=== PATIENT | female | born 1960 | race Two or more races ===

== ENCOUNTER 2017-04-06 02:48 | Inpatient (IN) | payer MEDICAID ==
[~2017-04-06] VITALS: Ht 165.1 cm; Wt 142.2 kg
[~2017-04-06 02:48] MED LIST: AMLO10TA2 PO; APIX5TAB PO; ASPI500P3 PO; ATOR10TA9 PO; HYDR-3240 PO; HYDR1POW19 PO; LINE600I14 PO; LISI1POW PO; METF500T4 PO; METO1TAB18 PO; METO25TA35 PO
[2017-04-06] MEDS ORDERED: SODIUM CHLORIDE 0.9% 1,000 ML IV ONE (02:57)
[2017-04-06] MEDS ORDERED: ASPIRIN 81 MG TABLET CHEW PO ONE (03:00)
[2017-04-06] MEDS ORDERED: DILTIAZEM 5 MG/ML, 5ML IV ONE (03:00)
[2017-04-06] MEDS ORDERED: SODIUM CHLORIDE FLUSH 10ML SYR IVF ONE (03:00)
[2017-04-06] MEDS ORDERED: MORPHINE SULFATE 4 MG/ML, 1ML IVPush PRN (03:00)
[2017-04-06] MEDS ORDERED: ASPIRIN 81 MG TABLET CHEW ONE (03:24)
[2017-04-06] MEDS ORDERED: DILTIAZEM 5 MG/ML, 5ML ONE (03:24)
[2017-04-06 03:36] LABS: HEMATOCRIT 51.3 % (34.6-47.8); HEMOGLOBIN 17.1 g/dL (11.7-16.4); WHITE BLOOD COUNT 7.3 x10^3/uL (3.4-10)
[2017-04-06 03:41] LABS: BLOOD UREA NITROGEN 24 mg/dL (7-18)
[2017-04-06 03:57] LABS: ASPARTATE AMINO TRANSFERASE 29 U/L (15-37); IS PT STATUS REG ER OR PRE ER? YES
[2017-04-06] MEDS ORDERED: NITROGLYCERIN 0.4 MG/SPRAY SL PRN (04:00)
[2017-04-06] MEDS ORDERED: NITROGLYCERIN 0.4 MG BOTTLE (25 TABS) SL PRN (04:00)
[2017-04-06] MEDS ORDERED: METF-650 PO (04:19)
[2017-04-06] MEDS ORDERED: LISI40TA PO (04:19)
[2017-04-06] MEDS ORDERED: hydrALAzine 20 MG/ML, 1ML IVPush PRN (04:30)
[2017-04-06] MEDS ORDERED: LORazepam 2 MG/ML, 1ML IVPush PRN (04:30)
[2017-04-06] MEDS ORDERED: ONDANSETRON 2MG/ML, 2ML IVPush PRN (04:30)
[2017-04-06] MEDS ORDERED: ACETAMINOPHEN 325 MG TABLET PO PRN (04:30)
[2017-04-06 04:44] LABS: IS PT STATUS REG ER OR PRE ER? YES
[2017-04-06 05:23] VITALS: BP 112/74
[2017-04-06] MEDS ORDERED: DILTIAZEM 125 MG in SODIUM CHLORIDE 0.9% 100 ML IV SCH (05:30)
[2017-04-06] MEDS ORDERED: METOPROLOL TARTRATE 25 MG TABLET PO SCH ×2 (06:00→18:00)
[2017-04-06] MEDS ORDERED: ENOXAPARIN 120MG/0.8ML SQ SCH (06:00)
[2017-04-06] MEDS: INSULIN ASPART 100 UNITS/ML, PEN SQ-INSULIN SCH ×4 (07:00→20:24)
[2017-04-06 07:51] LABS: IS PT STATUS REG ER OR PRE ER? NO
[2017-04-06 08:07] VITALS: BP 122/83
[2017-04-06] MEDS: ACETAMINOPHEN 325 MG TABLET PO PRN (08:37)
[2017-04-06] MEDS: ASPIRIN 325 MG TABLET EC PO SCH (08:37)
[2017-04-06] MEDS: FAMOTIDINE 20 MG/2 ML IVPush SCH ×2 (08:37→20:23)
[2017-04-06] MEDS: SODIUM CHLORIDE FLUSH 10ML SYR IVF SCH ×4 (08:38→20:23)
[2017-04-06] MEDS ORDERED: SULF1TAB24 PO (08:39)
[2017-04-06] MEDS ORDERED: APIXABAN 5 MG TABLET PO SCH (09:00)
[2017-04-06] MEDS ORDERED: LISINOPRIL 20 MG TABLET PO SCH (09:00)
[2017-04-06] MEDS ORDERED: HYDROCHLOROTHIAZIDE 25 MG PO SCH (09:00)
[2017-04-06] MEDS ORDERED: [UNRECOGNIZED DRUG - REMARK] XX PRN (13:00)
[2017-04-06] MEDS: METOPROLOL TARTRATE 25 MG TABLET PO SCH (14:07)
[2017-04-06 14:13] VITALS: BP 111/72
[2017-04-06] MEDS: SODIUM CHLORIDE 0.9% 500 ML IV SCH ×2 (15:30→17:18)
[2017-04-06] MEDS ORDERED: MAGNESIUM SULFATE PMX 2GM/50ML 50 ML IV ONE (15:30)
[2017-04-06 17:23] LABS: IS PT STATUS REG ER OR PRE ER? NO
[2017-04-06] MEDS ORDERED: ENOXAPARIN 100 MG/ML ONE (17:35)
[2017-04-06] MEDS ORDERED: ENOXAPARIN 40 MG/0.4 ML ONE (17:35)
[2017-04-06] MEDS: ENOXAPARIN 100 MG/ML SQ SCH (17:54)
[2017-04-06] MEDS: ENOXAPARIN 40 MG/0.4 ML SQ SCH (17:54)
[2017-04-06 20:06] VITALS: BP 118/77
[2017-04-06] MEDS: ATORVASTATIN 10 MG TABLET PO SCH (20:23)
[2017-04-06] MEDS: SULFAMETH./TRIMETHOPRIM DS 800MG/160MG TABLET PO SCH (20:23)
[2017-04-06 20:59] LABS: IS PT STATUS REG ER OR PRE ER? NO
[2017-04-07 02:10] VITALS: BP 165/90
[2017-04-07 05:09] VITALS: BP 124/74
[2017-04-07] MEDS: ENOXAPARIN 40 MG/0.4 ML SQ SCH (05:11)
[2017-04-07] MEDS: ENOXAPARIN 100 MG/ML SQ SCH (05:11)
[2017-04-07] MEDS: METOPROLOL TARTRATE 25 MG TABLET PO SCH ×2 (05:12→17:24)
[2017-04-07 05:57] LABS: BLOOD UREA NITROGEN 28 mg/dL (7-18)
[2017-04-07 06:08] LABS: IS PT STATUS REG ER OR PRE ER? NO
[2017-04-07 06:11] LABS: HEMATOCRIT 45.1 % (34.6-47.8); WHITE BLOOD COUNT 5.6 x10^3/uL (3.4-10)
[2017-04-07 06:51] VITALS: BP 139/67
[2017-04-07] MEDS: INSULIN ASPART 100 UNITS/ML, PEN SQ-INSULIN SCH ×4 (07:00→21:00)
[2017-04-07] MEDS: SODIUM CHLORIDE FLUSH 10ML SYR IVF SCH ×4 (08:26→21:17)
[2017-04-07] MEDS: SULFAMETH./TRIMETHOPRIM DS 800MG/160MG TABLET PO SCH ×2 (08:26→21:17)
[2017-04-07] MEDS: FAMOTIDINE 20 MG TABLET PO SCH ×2 (08:26→21:21)
[2017-04-07] MEDS: ASPIRIN 325 MG TABLET EC PO SCH (08:26)
[2017-04-07 15:57] VITALS: BP 147/93
[2017-04-07] MEDS: ENOXAPARIN 150 MG/ML SQ SCH (17:25)
[2017-04-07 20:10] VITALS: BP 153/84
[2017-04-07] MEDS ORDERED: APIXABAN 5 MG TABLET PO SCH (21:00)
[2017-04-07] MEDS: ATORVASTATIN 10 MG TABLET PO SCH (21:17)
[2017-04-08 01:28] VITALS: BP 143/86
[2017-04-08 04:45] LABS: HEMATOCRIT 45.6 % (34.6-47.8); HEMOGLOBIN 15.6 g/dL (11.7-16.4); WHITE BLOOD COUNT 6.7 x10^3/uL (3.4-10)
[2017-04-08 04:53] LABS: BLOOD UREA NITROGEN 22 mg/dL (7-18)
[2017-04-08] MEDS: METOPROLOL TARTRATE 25 MG TABLET PO SCH ×2 (06:28→16:50)
[2017-04-08] MEDS: ENOXAPARIN 150 MG/ML SQ SCH ×2 (06:28→19:52)
[2017-04-08] MEDS: INSULIN ASPART 100 UNITS/ML, PEN SQ-INSULIN SCH ×4 (07:00→21:00)
[2017-04-08 08:00] VITALS: BP 136/85
[2017-04-08] MEDS ORDERED: REGADENOSON 0.4 MG/5 ML SYRINGE ONE (08:20)
[2017-04-08] MEDS: SODIUM CHLORIDE FLUSH 10ML SYR IVF SCH ×4 (09:00→19:52)
[2017-04-08] MEDS: FAMOTIDINE 20 MG TABLET PO SCH ×2 (09:10→19:51)
[2017-04-08] MEDS: SULFAMETH./TRIMETHOPRIM DS 800MG/160MG TABLET PO SCH ×2 (09:11→19:50)
[2017-04-08] MEDS: ASPIRIN 325 MG TABLET EC PO SCH (09:13)
[2017-04-08 15:25] VITALS: BP 152/87
[2017-04-08] MEDS: ACETAMINOPHEN 325 MG TABLET PO PRN (16:58)
[2017-04-08 18:59] VITALS: BP 130/85
[2017-04-08] MEDS: ATORVASTATIN 10 MG TABLET PO SCH (19:52)
[2017-04-09 01:17] VITALS: BP 149/70
[2017-04-09] MEDS: METOPROLOL TARTRATE 25 MG TABLET PO SCH (05:52)
[2017-04-09] MEDS: INSULIN ASPART 100 UNITS/ML, PEN SQ-INSULIN SCH ×2 (07:00→11:00)
[2017-04-09 08:04] VITALS: BP 138/88
[2017-04-09] MEDS: ENOXAPARIN 150 MG/ML SQ SCH (08:04)
[2017-04-09] MEDS: ASPIRIN 325 MG TABLET EC PO SCH (08:04)
[2017-04-09] MEDS: SULFAMETH./TRIMETHOPRIM DS 800MG/160MG TABLET PO SCH (08:04)
[2017-04-09] MEDS: FAMOTIDINE 20 MG TABLET PO SCH (08:04)
[2017-04-09] MEDS: SODIUM CHLORIDE FLUSH 10ML SYR IVF SCH ×2 (08:06)
[2017-04-09] MEDS ORDERED: METO25TA35 PO (14:10)
[2017-04-09] MEDS ORDERED: ATOR10TA9 PO (14:10)
[2017-04-09] MEDS ORDERED: APIX5TAB PO (14:10)
[2017-04-09] MEDS ORDERED: LISI40TA PO (14:10)
[2017-04-09] MEDS ORDERED: METF500T4 PO (14:10)
[2017-04-09] MEDS ORDERED: HYDR12.58 PO (14:10)
[2017-04-09 15:24] VITALS: BP 146/91
== END 2017-04-09 15:22 | disposition home or self-care (01) | DRG 308 ==
LOC: ED 03:28 → EDIP 03:49 → 5SO 05:16
PROVIDERS: ADMIT Family Medicine; ATTEND Family Medicine
DX: I48.91 Unspecified atrial fibrillation (principal); N17.0 Acute kidney failure with tubular necrosis; D68.69 Other thrombophilia; E11.22 Type 2 diabetes mellitus with diabetic chronic kidney disease; E11.65 Type 2 diabetes mellitus with hyperglycemia; E66.01 Morbid (severe) obesity due to excess calories; Z68.43 Body mass index [BMI] 50.0-59.9, adult; I07.1 Rheumatic tricuspid insufficiency; E88.81 Metabolic syndrome and other insulin resistance; F17.210 Nicotine dependence, cigarettes, uncomplicated; G47.33 Obstructive sleep apnea (adult) (pediatric); I12.9 Hypertensive chronic kidney disease with stage 1 through stage 4 chronic kidney disease, or unspecified chronic kidney disease; I35.8 Other nonrheumatic aortic valve disorders; N18.9 Chronic kidney disease, unspecified; Z79.2 Long term (current) use of antibiotics; Z79.82 Long term (current) use of aspirin; Z82.3 Family history of stroke; Z82.49 Family history of ischemic heart disease and other diseases of the circulatory system; Z91.19 Patient's noncompliance with other medical treatment and regimen; Z91.14 Patient's other noncompliance with medication regimen
CPT/HCPCS: 36415; 71010; 78452; 80048; 80053; 80061; 82962; 83036; 83735; 83880; 84436; 84439; 84443; 84484; 85025; 85610; 85730; 93005; 93017; 93306; 96361; 96374; J1650; J2785; A9502; C9898; J3475; J7030; J7040; S0028

== ENCOUNTER 2018-08-12 06:56 | Emergency (ER) | payer MEDICAID, OTHER ==
[~2018-08-12] VITALS: Ht 167.6 cm; Wt 140.0 kg
[~2018-08-12 06:56] MED LIST changes: -AMLO10TA2 PO; +AMLO10TA8 PO; +HYDROCHLOROTH12.5 MG PO; +LISI40TA PO; +METF-650 PO; +METF500T17 PO; -METF500T4 PO; +SULF1TAB24 PO
[2018-08-12] MEDS ORDERED: LISINOPRIL 20 MG TABLET PO ONE (07:30)
[2018-08-12] MEDS ORDERED: LISINOPRIL 20 MG TABLET ONE (07:30)
--- NOTE | 2018-08-12 07:33 | NUR ---
Patient transported for xray
[2018-08-12 07:50] LABS: BASOPHILS # (AUTO) 0.03 x10^3/uL (0-0.1); BASOPHILS % (AUTO) 0 % (0-1); EOSINOPHILS # (AUTO) 0.15 x10^3/uL (0-0.4); EOSINOPHILS % (AUTO) 2 % (1-7); LYMPHOCYTES # (AUTO) 1.81 x10^3/uL (1-3.4); LYMPHOCYTES % (AUTO) 24 % (22-44); MD NO; MEAN CORPUSCULAR HEMOGLOBIN 32.4 pg (27.0-34.8); MEAN CORPUSCULAR HGB CONC 33.4 g/dL (32.4-35.8); MEAN PLATELET VOLUME 8.5 fL (7.4-10.4); MONOCYTES # (AUTO) 0.43 x10^3/uL (0.2-0.8); MONOCYTES % (AUTO) 6 % (2-9); NEUTROPHILS # (AUTO) 5.19 x10^3/uL (1.8-6.8); NEUTROPHILS % (AUTO) 68 % (42-75); PLATELET COUNT 229 x10^3/uL (130-400); RED BLOOD COUNT 5.31 x10^6/uL (3.82-5.3)
[2018-08-12 08:02] LABS: ALBUMIN 3.4 g/dL (3.4-5.0); ANION GAP 6 mmol/L (5-15); CALCIUM 8.7 mg/dL (8.5-10.1); CHLORIDE 101 mmol/L (98-107)
[2018-08-12 08:05] LABS: CREATININE 1.46 mg/dL (0.55-1.02)
[2018-08-12 08:25] VITALS: BP 201/106
--- NOTE | 2018-08-12 08:35 | NUR ---
Discharge instructions discussed with patient including when to return to emergency department, patient verbalizes understanding. Patient ambulates with steady gait to discharge desk in no acute distress.
== END 2018-08-12 08:37 | disposition home or self-care (01) ==
LOC: ED 08:15
DX: B34.9 Viral infection, unspecified (principal); H65.02 Acute serous otitis media, left ear; E11.9 Type 2 diabetes mellitus without complications; I10 Essential (primary) hypertension; I48.91 Unspecified atrial fibrillation; I25.2 Old myocardial infarction; Z72.9 Problem related to lifestyle, unspecified; Z88.0 Allergy status to penicillin; F17.200 Nicotine dependence, unspecified, uncomplicated
CPT/HCPCS: 36415; 71046; 80048; 82040; 85025; 99284